=== PATIENT | female | born 1985 | race Caucasian/White ===

== ENCOUNTER 2017-12-17 16:00 | Emergency (ER) | payer MEDICAID ==
[~2017-12-17] VITALS: Ht 167.6 cm; Wt 109.0 kg
[~2017-12-17 16:00] MED LIST: ALBU8.5H8 IH; AZEL30SP BOTHNARES; MONT10TA21 PO
[2017-12-17 16:06] VITALS: BP 127/63
[2017-12-17] MEDS ORDERED: ketorolac trometh inj. 60 MG/2 ML VIAL IM ONE (16:20)
== END 2017-12-17 16:39 | disposition home or self-care (01) ==
LOC: ER 16:01
DX: M76.61 Achilles tendinitis, right leg (principal)
CPT/HCPCS: 96372; 99283; J1885

== ENCOUNTER 2018-09-18 09:22 | Emergency (ER) | payer BC, MEDICAID ==
[~2018-09-18] VITALS: Ht 167.6 cm; Wt 77.3 kg
[2018-09-18 09:27] VITALS: BP 102/45
[2018-09-18] MEDS ORDERED: AZIT500T5 PO (10:02)
== END 2018-09-18 10:53 | disposition home or self-care (01) ==
LOC: ER 09:22
DX: J02.9 Acute pharyngitis, unspecified (principal); Z79.899 Other long term (current) drug therapy
CPT/HCPCS: 99283

== ENCOUNTER 2019-04-08 16:57 | Emergency (ER) | payer OTHER, MEDICAID ==
[~2019-04-08] VITALS: Ht 167.6 cm; Wt 76.0 kg
[~2019-04-08 16:57] MED LIST changes: +AZIT500T9 PO
[2019-04-08 17:20] VITALS: BP 126/80
[2019-04-08] MEDS ORDERED: LIDOcaine 5% patch TP STA (19:16)
[2019-04-08] MEDS ORDERED: ibuprofen 200mg tablet PO ONE (19:20)
[2019-04-08] MEDS ORDERED: CYCL-1 PO (19:32)
== END 2019-04-08 19:49 | disposition home or self-care (01) ==
LOC: ER 16:58
DX: S16.1XXA Strain of muscle, fascia and tendon at neck level, initial encounter (principal); R51 Headache; M25.511 Pain in right shoulder; M25.512 Pain in left shoulder; Z98.890 Other specified postprocedural states; Z79.899 Other long term (current) drug therapy; V89.2XXA Person injured in unspecified motor-vehicle accident, traffic, initial encounter; Y93.89 Activity, other specified; Y92.488 Other paved roadways as the place of occurrence of the external cause; Y99.8 Other external cause status
CPT/HCPCS: 99283

== ENCOUNTER 2020-01-06 17:51 | Emergency (ER) | payer MEDICAID, OTHER ==
[~2020-01-06] VITALS: Ht 167.6 cm; Wt 79.5 kg
[~2020-01-06 17:51] MED LIST changes: +CYCL-1 PO
[2020-01-06 18:06] VITALS: BP 102/66
[2020-01-06 18:33] LABS: URINE HCG NEGATIVE (NEG)
[2020-01-06 18:40] LABS: CLARITY,URINE CLEAR (Clear); COLOR,URINE STRAW (Yellow); GLUCOSE, URINE NEGATIVE (Neg); KETONES,URINE NEGATIVE (Neg); LEUKOCYTE ESTERASE ,URINE MODERATE (Neg); NITRITES, URINE NEGATIVE (Neg); OCCULT BLOOD,URINE LARGE (Neg); PROTEIN,URINE NEGATIVE (Neg); UROBILINOGEN,URINE 0.2 E.U/dL (0.2-1.0)
[2020-01-06 18:41] LABS: UA COLLECTION TYPE CLN CATCH MIDSTREAM
[2020-01-06 18:43] LABS: BACTERIA,URINE 1+ /HPF (Neg); RBC,URINE NONE SEEN /HPF (0-2); WBC,URINE 20-30 /HPF (0-4)
[2020-01-06 18:44] LABS: RENAL CELLS, URINE MODERATE /HPF; SQUAMOUS EPITHELIAL CELL,UR MODERATE /LPF (FEW)
[2020-01-06] MEDS ORDERED: CEPH250T PO (18:58)
[2020-01-06] MEDS ORDERED: PHEN-824 PO (19:03)
== END 2020-01-06 19:14 | disposition home or self-care (01) ==
LOC: ER 17:51
DX: N39.0 Urinary tract infection, site not specified (principal); R31.9 Hematuria, unspecified; R19.7 Diarrhea, unspecified; Z98.890 Other specified postprocedural states; Z79.2 Long term (current) use of antibiotics; Z79.899 Other long term (current) drug therapy
CPT/HCPCS: 81001; 81025; 87077; 87088; 87186; 99283